=== PATIENT | female | born 1935 | race Caucasian/White ===

== ENCOUNTER 2016-05-27 14:37 | Emergency (ER) | payer MEDICARE ==
[~2016-05-27] VITALS: Ht 157.5 cm; Wt 68.0 kg
[~2016-05-27 14:37] MED LIST: CEPH500C3 PO; METO25 PO; METO50TA PO; ROSU5 PO; VITATAB25 PO
[2016-05-27 14:39] VITALS: BP 179/98; PULSE 127; RESP 15; TEMP 98.2; O2SAT 96
[2016-05-27 14:40] VITALS: PULSE 60
--- NOTE | 2016-05-27 15:23 | PD ---
HPI Chief Complaint: Cardiac Complaint Time Seen by Provider: 16:00 Travel History International Travel<30 days: Yes Contact w/Intl Traveler<30days: Yes Name of Country Traveled to: [place] APR 24 Traveled to known affect area: Yes History of Present Illness HPI 81-year-old female brought into the emergency department by her family for warts of palpitations and elevated blood pressure. Patient reports symptoms of vertigo yesterday, for which she took Dramamine with improvement. Since yesterday patient is felt her "heart pounding in her chest" but denies shortness of breath, chest pain, or weakness. Dizziness is currently resolved. Patient has history of vertigo and dizziness in the past. Patient is actually typically very active playing tennis 4 times per week but didn't feel well enough to play tennis yesterday. Patient denies headache, head congestion , ear pain, sore throat, postnasal drip, vomiting, or diarrhea. Patient has had some mild nausea. Patient denies abdominal pain or diarrhea. She is allergic to Demerol. PFSH Past Medical History Cancer: Yes (SKIN) Diabetes: Yes (BORDERLINE) Diminished Hearing: No Glaucoma: No Hepatitis: No Hiatal Hernia: No Hypertension: Yes Thyroid Disease: No Past Surgical History Gynecologic Surgery: Yes (LAPAROTOMY FOR ENDOMETRIOSIS) Pacemaker: No Other Surgery: Yes (HEMMROIDECTOMY, SKIN CANCER REMOVAL) Social History Alcohol Use: Yes (OCCAS.) Tobacco Use: Yes (QUIT 49 YRS) Substance Use: No Allergies-Medications (Allergen,Severity, Reaction): Coded Allergies: Demerol (Unverified Adverse Reaction, Intermediate, POSS. HYPERTENSION, 24/02) Reported Meds & Prescriptions Reported Meds & Active Scripts Active Reported Lisinopril 10 Mg Tab 10 Mg PO DAILY Crestor (Rosuvastatin Calcium) 5 Mg Tab 5 Mg PO DAILY Metoprolol Tartrate 25 Mg Tab 25 Mg PO BID Review of Systems Except as stated in HPI: all other systems reviewed are Neg General / Constitutional: No: Fever Eyes: No: Visual changes HENT: Positive: Vertigo, No: Headaches, Lightheadedness, Sore Throat, Rhinitis , Rhinorrhea, Congestion, Nosebleed, Neck Stiffness, Neck Pain, Gingival Bleeding, Dental Difficulties, Ear Discharge, Earache Cardiovascular: Positive: Palpitations, No: Chest Pain or Discomfort, Irregular Rhythm, Tachycardia, Diaphoresis, Syncope, Dyspnea on exertion, Varicosities, Edema, Varicosities, Phlebitis, Claudication Respiratory: No: Cough, Shortness of Breath, Wheezing Gastrointestinal: Positive: Nausea, No: Vomiting, Diarrhea, Abdominal Pain Genitourinary: No: Dysuria Musculoskeletal: No: Pain Skin: No Rash Neurologic: No: Weakness Psychiatric: No: Depression Endocrine: No: Polydipsia Hematologic/Lymphatic: No: Easy Bruising Physical Exam Narrative GENERAL: Patient appears in no acute distress. She is resting comfortably on the exam table. SKIN: Warm and dry. Normal color. Normal turgor. HEAD: Atraumatic. Normocephalic. EYES: Pupils equal and round. No scleral icterus. No injection or drainage. No nystagmus is appreciated. ENT: No nasal bleeding or discharge. Mucous membranes pink and moist. TMs are clear bilaterally. Airway is patent. Pharynx is normal. NECK: Trachea midline. No JVD. Neck is supple and nontender. No bruits appreciated. CARDIOVASCULAR: Regular rate and rhythm. No murmurs gallops or rubs appreciated. RESPIRATORY: No accessory muscle use. Clear to auscultation. Breath sounds equal bilaterally. MUSCULOSKELETAL: Extremities without clubbing, cyanosis, or edema. No obvious deformities. NEUROLOGICAL: Awake and alert. No obvious cranial nerve deficits. Motor grossly within normal limits. Five out of 5 muscle strength in the arms and legs. Normal speech. PSYCHIATRIC: Appropriate mood and affect; insight and judgment normal. Data Data Last Documented VS Vital Signs Date Time Temp Pulse Resp B/P Pulse Ox O2 Delivery O2 Flow Rate FiO2 05/27/16 15:51 86 16 181/98 92 Room Air 05/27/16 14:39 98.2 Orders Electrocardiogram (05/27/16 ) Complete Blood Count With Diff (05/27/16 15:31) Comprehensive Metabolic Panel (05/27/16 15:31) Magnesium (Mg) (05/27/16 15:31) Ckmb (Isoenzyme) Profile (05/27/16 15:31) Troponin I (05/27/16 15:31) Act Partial Throm Time (Ptt) (05/27/16 15:31) Prothrombin Time / Inr (Pt) (05/27/16 15:31) Chest, Single Ap (05/27/16 15:31) Ct Brain W/O Iv Contrast(Rout) (05/27/16 15:31) Ecg Monitoring (05/27/16 15:31) Iv Access Insert/Monitor (05/27/16 15:31) Oximetry (05/27/16 15:31) Meclizine (Antivert) (05/27/16 15:45) Sodium Chloride 0.9% Flush (Ns Flush) (05/27/16 15:45) Orthostatic Vital Signs (05/27/16 15:31) Labs Laboratory Tests Test 05/27/16 15:45 White Blood Count 5.8 TH/MM3 Red Blood Count 4.31 MIL/MM3 Hemoglobin 13.5 GM/DL Hematocrit 40.4 % Mean Corpuscular Volume 93.6 FL Mean Corpuscular Hemoglobin 31.4 PG Mean Corpuscular Hemoglobin 33.5 % Concent Red Cell Distribution Width 13.8 % Platelet Count 182 TH/MM3 Mean Platelet Volume 8.5 FL Neutrophils (%) (Auto) 57.0 % Lymphocytes (%) (Auto) 31.0 % Monocytes (%) (Auto) 10.3 % Eosinophils (%) (Auto) 1.3 % Basophils (%) (Auto) 0.4 % Neutrophils # (Auto) 3.3 TH/MM3 Lymphocytes # (Auto) 1.8 TH/MM3 Monocytes # (Auto) 0.6 TH/MM3 Eosinophils # (Auto) 0.1 TH/MM3 Basophils # (Auto) 0.0 TH/MM3 CBC Comment DIFF FINAL Differential Comment Prothrombin Time 11.1 SEC Prothromb Time International 1.0 RATIO Ratio Activated Partial 23.6 SEC Thromboplast Time Sodium Level 145 MEQ/L Potassium Level 4.2 MEQ/L Chloride Level 109 MEQ/L Carbon Dioxide Level 29.2 MEQ/L Anion Gap 7 MEQ/L Blood Urea Nitrogen 10 MG/DL Creatinine 0.95 MG/DL Estimat Glomerular Filtration 56 ML/MIN Rate Random Glucose 96 MG/DL Calcium Level 9.1 MG/DL Magnesium Level 2.2 MG/DL Total Bilirubin 0.4 MG/DL Aspartate Amino Transf 18 U/L (AST/SGOT) Alanine Aminotransferase 23 U/L (ALT/SGPT) Alkaline Phosphatase 81 U/L Total Creatine Kinase 78 U/L Troponin I LESS THAN 0.02 NG/ML Total Protein 7.0 GM/DL Albumin 3.5 GM/DL MDM Medical Decision Making Medical Screen Exam Complete: Yes Emergency Medical Condition: Yes Differential Diagnosis Plan positional vertigo. Palpitations. TIA. CVA. Cardiac syndrome. Narrative Course Patient is medically stable at time of exam. Labs ordered including CBC, CMP, cardiac panel. CT of the head is ordered as well as chest x-ray. EKG shows a normal sinus rhythm at [address] changes. This is reviewed with Dr. Kuhn. CT of the head is unremarkable. Chest x-ray shows no acute findings. 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 There are no old comparisons. CBC is completely within normal limits. CMP unremarkable. Troponin is less than 0.02. Patient was discussed with Dr. Kuhn who felt the patient was stable for discharge. Patient will be discharged home with a prescription for meclizine as needed for dizziness. Patient is to follow-up with her primary care physician next week as discussed. Patient can return to the emergency department anytime as needed. Diagnosis Primary Impression: Benign positional vertigo Qualified Code: H81.10 - Benign positional vertigo, unspecified laterality Additional Impression: Hypertension Qualified Code: I10 - Essential hypertension Referrals: Primary Care Physician Patient Instructions: General Instructions Additional Instructions: EKG shows a normal sinus rhythm at [address] changes. This is reviewed with Dr. Kuhn. CT of the head is unremarkable. Chest x-ray shows no acute findings. 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 There are no old comparisons. CBC is completely within normal limits. CMP unremarkable. Troponin is less than 0.02. Patient was discussed with Dr. Kuhn who felt the patient was stable for discharge. Patient will be discharged home with a prescription for meclizine as needed for dizziness. Patient is to follow-up with her primary care physician next week as discussed. Patient can return to the emergency department anytime as needed. Med/Other Pt SpecificInfo: Prescription(s) given Disposition: DISCHARGE HOME Condition: Stable Femi Loredo May 27, 2016 15:23
[2016-05-27 15:35] VITALS: O2SAT 92
[2016-05-27] MEDS ORDERED: MECLIZINE HCL 25 MG TAB PO ONE (15:45)
[2016-05-27] MEDS ORDERED: SODIUM CHLORIDE 0.9% FLUSH 5 ML FLUSH IVF PRN (15:45)
[2016-05-27 15:51] VITALS: BP 181/98; PULSE 86; RESP 16; O2SAT 92
[2016-05-27] MEDS ORDERED: LISI10TA3 PO (15:53)
[2016-05-27] MEDS ORDERED: ROSU5 PO (15:53)
[2016-05-27] MEDS ORDERED: METO25TA3 PO (15:53)
--- NOTE | 2016-05-27 16:01 | RADRPT ---
EXAM DATE/TIME: 05/27/2016 15:30 [facility] COMPARISON: No previous studies available for comparison. INDICATIONS : Palpitations. MEDICAL HISTORY : None. SURGICAL HISTORY : None. ENCOUNTER: Initial ACUITY: 1 day PAIN SCORE: 0/10 LOCATION: Bilateral chest FINDINGS: A single view of the chest demonstrates the lungs to be symmetrically aerated without evidence of mas s, infiltrate or effusion. There is moderate elevation of the right hemidiaphragm. The cardiomediasti nal contours are unremarkable. Osseous structures are intact. CONCLUSION: 1. Moderate elevation of the right hemidiaphragm which could indicate paralysis. 2. No confluent infiltrates or effusions. David Mtz MD on May 27, 2016 at 15:59 Board Certified Radiologist. This report was verified electronically.
--- NOTE | 2016-05-27 16:08 | RADRPT ---
EXAM DATE/TIME: 05/27/2016 15:58 [facility] COMPARISON: No previous studies available for comparison. INDICATIONS : Dizziness with nausea yesterday. RADIATION DOSE: 32.69 CTDIvol (mGy) MEDICAL HISTORY : Hypertension. Diabetes mellitus type 2. Skin cancer. SURGICAL HISTORY : None. ENCOUNTER: Initial ACUITY: 1 day PAIN SCALE: 0/10 LOCATION: cranial TECHNIQUE: Multiple contiguous axial images were obtained of the head. Using automated exposure control and adj ustment of the mA and/or kV according to patient size, radiation dose was kept as low as reasonably a chievable to obtain optimal diagnostic quality images. FINDINGS: CEREBRUM: The ventricles are normal for age. No evidence of midline shift, mass lesion, hemorrhage or acute in farction. No extra-axial fluid collections are seen. POSTERIOR FOSSA: The cerebellum and brainstem are intact. The 4th ventricle is midline. The cerebellopontine angle i s unremarkable. EXTRACRANIAL: The visualized portion of the orbits is intact. SKULL: The calvaria is intact. No evidence of skull fracture. CONCLUSION: 1. No acute intracranial abnormality is identified. Thaddeus Saenz MD on May 27, 2016 at 16:05 Board Certified Radiologist. This report was verified electronically.
[2016-05-27 16:43] LABS: AUTOMATED NEUTROPHIL # 3.3 TH/MM3 (1.8-7.7); BASOPHIL % 0.4 % (0.0-2.0); EOSINOPHIL # 0.1 TH/MM3 (0-0.4); EOSINOPHIL % 1.3 % (0.0-4.0); HEMATOCRIT 40.4 % (35.0-46.0); HEMO FLAGS DIFF FINAL; LYMPHOCYTE # 1.8 TH/MM3 (1.0-4.8); MEAN CELL VOLUME 93.6 FL (80.0-100.0); MEAN CORPUSCULAR HEMOGLOBIN 31.4 PG (27.0-34.0); MEAN CORPUSCULAR HGB CONC 33.5 % (32.0-36.0); MONO % 10.3 % (0.0-8.0); PLATELET COUNT 182 TH/MM3 (150-450); RED BLOOD COUNT 4.31 MIL/MM3 (4.00-5.30); RED CELL DISTRIBUTION WIDTH 13.8 % (11.6-17.2); WHITE BLOOD COUNT 5.8 TH/MM3 (4.0-11.0)
[2016-05-27 16:49] LABS: APTT (PATIENT) 23.6 SEC (24.3-30.1); PROTHROMBIN TIME - PATIENT 11.1 SEC (9.8-11.6)
[2016-05-27 17:04] LABS: ALT (GPT) 23 U/L (10-53); ANION GAP 7 MEQ/L (5-15); AST (GOT) 18 U/L (15-37); BICARBONATE 29.2 MEQ/L (21.0-32.0); BLOOD UREA NITROGEN 10 MG/DL (7-18); CHLORIDE 109 MEQ/L (98-107); GLOMERULAR FILTRATION RATE 56 ML/MIN (>89); MAGNESIUM 2.2 MG/DL (1.5-2.5); POTASSIUM 4.2 MEQ/L (3.5-5.1); SODIUM (NA) 145 MEQ/L (136-145)
[2016-05-27 17:08] LABS: ALKALINE PHOSPHATASE 81 U/L (45-117); TOTAL BILIRUBIN ADULT 0.4 MG/DL (0.2-1.0)
[2016-05-27 17:09] LABS: CREATINE KINASE 78 U/L (26-192)
[2016-05-27] MEDS ORDERED: MECL12.574 PO (17:47)
--- NOTE | 2016-05-28 16:23 | EKG ---
Date Performed: 05/27/2016 Time Performed: 14:56:52 PTAGE: 81 years EKG: Sinus rhythm NORMAL ECG NO PREVIOUS TRACING DOCTOR: Bahman Conley Interpretating Date/Time 05/28/2016 16:21:53
== END 2016-05-27 18:27 | disposition home or self-care (01) ==
LOC: NEPE 14:37
DX: H81.10 Benign paroxysmal vertigo, unspecified ear (principal); I10 Essential (primary) hypertension
CPT/HCPCS: 70450; 71010; 80053; 82550; 83735; 84484; 85025; 85610; 85730; 93005

== ENCOUNTER → 2017-07-25 | Day surgery (SDC) | payer MEDICARE ==
[~2017-07-25] MED LIST changes: +ACETAMINOPHEN 1000 MG/100 ML 100 ML IV ONE; +BUPIVACAINE/EPINEPHRINE 0.25% 50 ML VIAL ONE; -CEPH500C3 PO; +LACTATED RINGER'S 1000 ML INJ 1,000 ML ONE; +LIDOCAINE 1%/EPINEPHrine 1:100,000 SOLN 30 ML VIAL ONE; +LISI10TA3 PO; +MECL12.574 PO; -METO25 PO; +METO25TA3 PO; -METO50TA PO; +MINERAL OIL 10 ML VIAL ONE; +ONDANSETRON HCL 4 MG/2 ML VIAL IV PUSH ONE; +PROPOFOL 200 MG/20 ML AMP IV ONE; -VITATAB25 PO; +ceFAZolin INJ 1,000 MG VIAL ONE
--- NOTE | 2017-07-25 09:48 | TN ---
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 PROCEDURE PERFORMED: Wide local excision with tissue rearrangement. Primary defect 3.5 x 2 cm. Secondary defect 7 x 3.5 cm. PROCEDURE: She was properly consented, marked and properly anesthetized. The skin was sterilized with Betadine solution and sterile draping applied. Excision was done of this tumor including the 0.2 to 0.3 cm margin resulting in a primary defect including the margins 3.5 x 2 cm. It was sent to pathology for permanent analysis. Due to the close proximity and the size of the defect we decided to perform a tissue rearrangement in which the V-Y flap was elevated, preserving the perforators, and advancing into the defect for a second defect of 7 x 3.5 cm. I inset this utilizing 3-0 Monocryl suture and 3-0 Prolene. For dressings, I utilized a Xeroform gauze, Sof-Rol, 4 x 4s, Sof-Rol and Coban. Good viability of tissue was noted at the end of the case. The patient was awakened and extubated in the operating room, and transferred back to the postanesthesia care unit in stable condition. No complications were appreciated. The patient tolerated the procedure fairly well. MD EVY Magana/EMANUEL , 09:31 AM , 09:47 AM [facility]
== END | disposition home or self-care (01) ==
LOC: ESDC 07:36
PROVIDERS: ATTEND Plastic Surgery
DX: C44.722 Squamous cell carcinoma of skin of right lower limb, including hip (principal)
CPT/HCPCS: 00400; 14301; 88305; J0131; J0690; J2405; J3010; J7120